=== PATIENT | female | born 1950 | race Caucasian/White ===

== ENCOUNTER → 2017-04-01 | Outpatient (CLI) | payer MEDICARE, BC ==
--- NOTE | 2017-04-02 10:27 | WWHP ---
DATE OF SERVICE: 04/01/2017 CHIEF COMPLAINT: The patient is here for her routine gynecologic exam and mammogram. HPI: This is a 66-year-old G7, P5-0-2-5 with an LMP of 2000. The patient is without gynecologic complaints. PAST MEDICAL HISTORY: Rheumatoid arthritis, osteoporosis, fibromyalgia, degenerative disc disease in the neck and lower back, herniated discs between L4 and L5, diverticulosis, irritable bowel syndrome, carpal tunnel syndrome, vertigo, dry eye syndrome, hypoglycemia, hiatal hernia and tachycardia. MEDICATIONS: 1. Humira 40 mg 1 injection every 2 weeks. 2. Arava 20 mg 1 daily. 3. Omeprazole 40 mg 1 daily. 4. Valacyclovir 500 mg 1 daily. 5. Restasis drops 2 times daily. 6. Metoprolol 25 mg 1 daily. 7. Myrbetriq 25 mg daily. 8. Prolia 1 injection every 6 months. 9. Multivitamin 2 daily. 10. Calcium supplement with vitamin D 600 mg daily. 11. Vitamin B complex and vitamin C daily. 12. Vitamin E 400 mg daily. 13. Geritol 1 tablespoon daily. 14. Fish oil supplement daily. 15. Probiotic daily. ALLERGIES: codeine. PAST SURGICAL HISTORY: Foot surgery, left knee replacement surgery, right shoulder surgery, tubal ligation, deviated nasal septum surgery, ganglion cyst removed in the past, right knee replacement in 03/07 and colonoscopy in 2010. 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 She has been on suppressive therapy for a number of years. SOCIAL HISTORY: She quit smoking in 2010 and denies alcohol and drug use. She is a and is not sexually active. She is retired. She recently moved to [place]. Family history is unchanged from the 2016 H&P. REVIEW OF SYSTEMS: She has lost 5 pounds over the last year. She denies respiratory, cardiac or GI problems. She denies maltreatment. She denies falling. : She has been having problems with urinary urgency and is seeing a urologist at [facility] for this. PHYSICAL EXAM: Blood pressure is 135/84. Height 5 feet 0 inches. Weight 122 pounds. Temperature 97.8. Pulse is 64. This is a well-developed, well-nourished white female who is alert and oriented x3 in no acute distress. HEENT is within normal limits. NECK: Supple without mass or thyromegaly. CHEST AND LUNGS: Clear to auscultation. HEART: Regular rate and rhythm. Breasts are without mass or discharge. There is mild left breast tenderness, which she has had for many years. Axillary exam is negative for adenopathy. BACK: Negative for CVA tenderness. ABDOMEN: Soft, nontender without palpable masses. PELVIC EXAM: External genitalia reveals mild to moderate atrophy without lesions. Cervix and vagina reveals mild to moderate atrophy without lesions. There is no evidence of prolapse at rest. The uterus is mid position, nongravid size and nontender. There are no palpable adnexal masses or tenderness. Rectovaginal exam is negative for mass or tenderness and is negative for occult blood. EXTREMITIES: Nontender. IMPRESSION: 1. A 66-year-old menopausal female with normal gynecologic exam. 2. Problems with urinary urgency and she is seeing a urologist for this. 3. Multiple medical problems. PLAN: 1. Pap smear was deferred since she had a normal one last year. 2. Self-breast examination was discussed. 3. Mammogram will be done today. 4. Osteoporosis management was discussed. She will follow up with doctor Abdul for management of the osteoporosis as she has done in the past. 5. She believes she is due for a colonoscopy and will be following up with Dr. Goodman for this. 6. She will follow up with Dr. Woods for blood pressure checks and her ongoing medical problems. She will also check her blood pressure at home. 7. She does get flu shots in the fall. 8. She will return in one year. RADHA
--- NOTE | 2017-04-02 13:21 | MM ---
Reason for exam: screening (asymptomatic). Last mammogram was performed 1 year ago. History: Patient is postmenopausal. Family history of breast cancer in sister at age 50. Physical Findings: A clinical breast exam by your physician is recommended on an annual basis and results should be correlated with mammographic findings. MG 3D Screening Mammo W/Cad Bilateral CC and MLO view(s) were taken. Prior study comparison: April 04, 2016, left breast MG work up mamm w CAD LT. March 28, 2016, bilateral MG screening mammo w CAD. February 09, 2014, mammogram, performed at [facility]. The breast tissue is heterogeneously dense. This may lower the sensitivity of mammography. No significant changes when compared with prior studies. ASSESSMENT: Negative, BI-RAD 1 RECOMMENDATION: Routine screening mammogram of both breasts in 1 year.
== END | disposition home or self-care (01) ==
LOC: WWCWWP 08:44
PROVIDERS: ATTEND Obstetrics & Gynecology
DX: Z12.31 Encounter for screening mammogram for malignant neoplasm of breast (principal)
CPT/HCPCS: 77063; G0202

== ENCOUNTER → 2017-04-18 | Outpatient (CLI) | payer MEDICARE, BC | END | disposition home or self-care (01) | LOC: LABWHC1 09:15 | PROVIDERS: ATTEND Internal Medicine Gastroenterology | DX: R19.7 Diarrhea, unspecified (principal) | CPT/HCPCS: 87045; 87046; 87328; 87329; 89055 ==

== ENCOUNTER 2018-03-13 13:37 | Emergency (ER) | payer MEDICARE, BC ==
[2018-03-13 13:57] VITALS: RESP 18
[2018-03-13] MEDS ORDERED: SODIUM CHLORIDE 0.9% 1,000 ML IV STA ×2 (14:45)
[2018-03-13] MEDS ORDERED: KETOROLAC 30 MG/ML 1 ML VIAL IVP STA (14:46)
[2018-03-13] MEDS ORDERED: ORPHENADRINE 30 MG/ML 2 ML VIAL IVP STA (14:46)
[2018-03-13] MEDS ORDERED: cloNIDine HCL 0.2 MG TAB PO STA (15:04)
[2018-03-13 15:09] VITALS: BP 161/84
[2018-03-13 15:13] LABS: Basophils % (A) 0 %; Eosinophils # (A) 0.1 k/uL (0-0.7); Eosinophils % (A) 1 %; HCT 37.2 % (34.0-46.0); HGB 12.4 gm/dL (11.4-16.0); Lymphocytes # (A) 1.5 k/uL (1.0-4.8); Lymphocytes % (A) 17 %; MCH 29.4 pg (25.0-35.0); MCHC 33.4 g/dL (31.0-37.0); MCV 88.1 fL (80.0-100.0); Mean Platelet Volume 7.1; Monocytes # (A) 0.5 k/uL (0-1.0); Monocytes % (A) 5 %; Neutrophils # (A) 6.4 k/uL (1.3-7.7); Neutrophils % (A) 75 %; Platelet Count 266 k/uL (150-450); RBC 4.22 m/uL (3.80-5.40); WBC 8.5 k/uL (3.8-10.6)
[2018-03-13 15:17] VITALS: PULSE 74
[2018-03-13 15:22] LABS: Partial Thromboplastin Time 22.3 sec (22.0-30.0); Prothrombin Time 9.5 sec (9.0-12.0)
[2018-03-13 15:23] LABS: ALT 40 U/L (9-52); AST 23 U/L (14-36); Albumin 4.1 g/dL (3.5-5.0); Alkaline Phosphatase 56 U/L (38-126); Anion Gap 12 mmol/L; Blood Urea Nitrogen 15 mg/dL (7-17); Calcium 9.3 mg/dL (8.4-10.2); Carbon Dioxide 20 mmol/L (22-30); Chloride 105 mmol/L (98-107); Glucose 156 mg/dL (74-99); Magnesium 1.9 mg/dL (1.6-2.3); Potassium 3.8 mmol/L (3.5-5.1); Sodium 137 mmol/L (137-145); Total Bilirubin 0.9 mg/dL (0.2-1.3); Total Protein 6.6 g/dL (6.3-8.2)
[2018-03-13 15:35] LABS: Creatine Kinase 54 U/L (30-135)
[2018-03-13 15:47] LABS: Creatine Kinase MB 1.4 ng/mL (0.0-2.4); Troponin I <0.012 ng/mL (0.000-0.034)
--- NOTE | 2018-03-13 15:49 | ED ---
Recheck HPI - General Chief Complaint: Recheck/Abnormal Lab/Rx Stated Complaint: High blood pressure Time Seen by Provider: 03/13/18 14:26 Source: patient, RN notes reviewed, old records reviewed Mode of arrival: ambulatory Limitations: no limitations - History of Present Illness Initial Comments: 67-year-old female presents that she might of high blood pressure. She's been dealing with right-sided back pain and sciatica. Her back specialist will not give any pain medication. She thinks that her blood pressure is elevated because she is having worsening pain. She reports that she's had occasional chest pains for the past 3 months. Denies any fever or chills, nausea, vomiting. - Related Data Home Medications Medication Instructions Recorded Confirmed Calcium Carbonate/Vitamin D3 1 tab PO DAILY 03/13/18 03/13/18 [Calcium 600-Vit D3 400 Tablet] EPINEPHrine (Auto Inject) [Epipen] 0.3 mg IM ONCE PRN 03/13/18 03/13/18 Gabapentin [Neurontin] 600 mg PO TID 03/13/18 03/13/18 Ibuprofen [Motrin] 600 mg PO Q8HR PRN 03/13/18 03/13/18 Leflunomide [Arava] 20 mg PO DAILY 03/13/18 03/13/18 Metoprolol Tartrate [Lopressor] 25 mg PO BID 03/13/18 03/13/18 [place]-3 Fatty Acids/Fish Oil [Fish 1 cap PO DAILY 03/13/18 03/13/18 Oil 1,000 mg Softgel] Omeprazole 40 mg PO DAILY 03/13/18 03/13/18 Prevident 5000 Paste 1 applic PO DAILY 03/13/18 03/13/18 Red Yeast Rice 600 mg PO DAILY 03/13/18 03/13/18 Simponi Aria 12.5mg/Ml 1 dose IV Q30D 03/13/18 03/13/18 Vitamin B Complex/Folic Acid 0.4 mg PO DAILY 03/13/18 03/13/18 [B-Complex Tablet] Vitamin E 1,000 unit PO DAILY 03/13/18 03/13/18 cycloSPORINE 0.05% OPHTH SOLN 1 applicator BOTH EYES DAILY 03/13/18 03/13/18 [Restasis] methylPREDNISolone Dose Pack See Taper PO DAILY 03/13/18 03/13/18 [Medrol Dose Pack] Previous Rx's Medication Instructions Recorded Cyclobenzaprine [Flexeril] 10 mg PO TID #15 tab 03/13/18 HYDROcodone/APAP 5-325MG [[place] 1 tab PO Q6HR PRN 3 Days #12 tab 03/13/18 5-325] Lisinopril [Prinivil] 5 mg PO DAILY #5 tablet 03/13/18 Allergies Allergy/AdvReac Type Severity Reaction Status Date / Time codeine Allergy Nausea & Verified 03/13/18 14:36 Vomiting Review of Systems ROS Statement: Those systems with pertinent positive or pertinent negative responses have been documented in the HPI. ROS Other: All systems not noted in ROS Statement are negative. Past Medical History Past Medical History: Chest Pain / Angina Additional Past Medical History / Comment(s): hypoglycemic , arthritis, chronic back pain, sciatica History of Any Multi-Drug Resistant Organisms: None Reported Past Surgical History: Joint Replacement, Tubal Ligation Additional Past Surgical History / Comment(s): foot surgery, nose surgery Past Psychological History: No Psychological Hx Reported Smoking Status: Never smoker Past Alcohol Use History: None Reported Past Drug Use History: None Reported General Exam - General Exam Comments Initial Comments: 67-year-old female. Alert and oriented. No significant distress. Limitations: no limitations Eye exam: Present: normal appearance, PERRL, EOMI. Absent: scleral icterus, conjunctival injection, periorbital swelling ENT exam: Present: normal exam, mucous membranes moist Neck exam: Present: normal inspection Respiratory exam: Present: normal lung sounds bilaterally. Absent: respiratory distress, wheezes, rales, rhonchi, stridor Cardiovascular Exam: Present: regular rate, normal rhythm, normal heart sounds. Absent: systolic murmur, diastolic murmur, rubs, gallop, clicks GI/Abdominal exam: Present: soft, normal bowel sounds. Absent: distended, tenderness, guarding, rebound, rigid Extremities exam: Present: normal inspection, full ROM, normal capillary refill. Absent: tenderness, pedal edema, joint swelling, calf tenderness Back exam: Present: normal inspection, paraspinal tenderness, vertebral tenderness (Lumbar and right-sided sciatic costovertebral tenderness.) Neurological exam: Present: alert, oriented X3, CN II-XII intact Psychiatric exam: Present: normal affect, normal mood Course Vital Signs 0603/13/18 03/13/18 13:55 15:07 16:30 Temperature 97.8 F 97 F L Pulse Rate 75 74 74 Respiratory 18 18 18 Rate Blood Pressure 174/93 161/84 161/84 O2 Sat by Pulse 98 98 98 Oximetry Medical Decision Making - Medical Decision Making 67-year-old female presents wrist from of right sciatic pain. Concern for high blood pressure. - Lab Data Result diagrams: 03/13/18 15:05 03/13/18 15:05 Lab Results 03/13/18 03/13/18 03/13/18 Range/Units 15:05 15:05 15:05 WBC 8.5 (3.8-10.6) k/uL RBC 4.22 (3.80-5.40) m/uL Hgb 12.4 (11.4-16.0) gm/dL Hct 37.2 (34.0-46.0) % MCV 88.1 (80.0-100.0) fL MCH 29.4 (25.0-35.0) pg MCHC 33.4 (31.0-37.0) g/dL RDW 15.0 (11.5-15.5) % Plt Count 266 (150-450) k/uL Neutrophils % 75 % Lymphocytes % 17 % Monocytes % 5 % Eosinophils % 1 % Basophils % 0 % Neutrophils # 6.4 (1.3-7.7) k/uL Lymphocytes # 1.5 (1.0-4.8) k/uL Monocytes # 0.5 (0-1.0) k/uL Eosinophils # 0.1 (0-0.7) k/uL Basophils # 0.0 (0-0.2) k/uL PT (9.0-12.0) sec INR (<1.2) APTT (22.0-30.0) sec Sodium 137 (137-145) mmol/L Potassium 3.8 (3.5-5.1) mmol/L Chloride 105 (98-107) mmol/L Carbon Dioxide 20 L (22-30) mmol/L Anion Gap 12 mmol/L BUN 15 (7-17) mg/dL Creatinine 0.67 (0.52-1.04) mg/dL Est GFR (CKD-EPI)AfAm >90 (>60 ml/min/1.73 sqM) Est GFR (CKD-EPI)NonAf >90 (>60 ml/min/1.73 sqM) Glucose 156 H (74-99) mg/dL Calcium 9.3 (8.4-10.2) mg/dL Magnesium 1.9 (1.6-2.3) mg/dL Total Bilirubin 0.9 (0.2-1.3) mg/dL AST 23 (14-36) U/L ALT 40 (9-52) U/L Alkaline Phosphatase 56 (38-126) U/L Total Creatine Kinase 54 (30-135) U/L CK-MB (CK-2) 1.4 (0.0-2.4) ng/mL CK-MB (CK-2) Rel Index 2.6 Troponin I <0.012 (0.000-0.034) ng/mL NT-Pro-B Natriuret Pep pg/mL Total Protein 6.6 (6.3-8.2) g/dL Albumin 4.1 (3.5-5.0) g/dL Urine Color Urine Appearance (Clear) Urine pH (5.0-8.0) Ur Specific [place] (1.001-1.035) Urine Protein (Negative) Urine Glucose (UA) (Negative) Urine Ketones (Negative) Urine Blood (Negative) Urine Nitrite (Negative) Urine Bilirubin (Negative) Urine Urobilinogen (<2.0) mg/dL Ur Leukocyte Esterase (Negative) 03/13/18 03/13/18 03/13/18 Range/Units 15:05 15:05 16:15 WBC (3.8-10.6) k/uL RBC (3.80-5.40) m/uL Hgb (11.4-16.0) gm/dL Hct (34.0-46.0) % MCV (80.0-100.0) fL MCH (25.0-35.0) pg MCHC (31.0-37.0) g/dL RDW (11.5-15.5) % Plt Count (150-450) k/uL Neutrophils % % Lymphocytes % % Monocytes % % Eosinophils % % Basophils % % Neutrophils # (1.3-7.7) k/uL Lymphocytes # (1.0-4.8) k/uL Monocytes # (0-1.0) k/uL Eosinophils # (0-0.7) k/uL Basophils # (0-0.2) k/uL PT 9.5 (9.0-12.0) sec INR 1.0 (<1.2) APTT 22.3 (22.0-30.0) sec Sodium (137-145) mmol/L Potassium (3.5-5.1) mmol/L Chloride (98-107) mmol/L Carbon Dioxide (22-30) mmol/L Anion Gap mmol/L BUN (7-17) mg/dL Creatinine (0.52-1.04) mg/dL Est GFR (CKD-EPI)AfAm (>60 ml/min/1.73 sqM) Est GFR (CKD-EPI)NonAf (>60 ml/min/1.73 sqM) Glucose (74-99) mg/dL Calcium (8.4-10.2) mg/dL Magnesium (1.6-2.3) mg/dL Total Bilirubin (0.2-1.3) mg/dL AST (14-36) U/L ALT (9-52) U/L Alkaline Phosphatase (38-126) U/L Total Creatine Kinase (30-135) U/L CK-MB (CK-2) (0.0-2.4) ng/mL CK-MB (CK-2) Rel Index Troponin I (0.000-0.034) ng/mL NT-Pro-B Natriuret Pep 76 pg/mL Total Protein (6.3-8.2) g/dL Albumin (3.5-5.0) g/dL Urine Color Yellow Urine Appearance Clear (Clear) Urine pH 5.0 (5.0-8.0) Ur Specific Gilbert 1.010 (1.001-1.035) Urine Protein Negative (Negative) Urine Glucose (UA) Negative (Negative) Urine Ketones Negative (Negative) Urine Blood Negative (Negative) Urine Nitrite Negative (Negative) Urine Bilirubin Negative (Negative) Urine Urobilinogen <2.0 (<2.0) mg/dL Ur Leukocyte Esterase Negative (Negative) - Radiology Data Radiology results: report reviewed Multilevel degenerative disease and facet arthropathy greatly and listhesis L5- S1. No acute cardiopulmonary processsignificant change from prior. Disposition Clinical Impression: Hypertension, Right sided sciatica Disposition: HOME SELF-CARE Condition: Stable Instructions: Sciatica (ED) Additional Instructions: Patient advised follow-up with primary care provider. It make sure take the medication as prescribed. Return to the emergency department if any alarming signs or symptoms occur. Prescriptions: Cyclobenzaprine [Flexeril] 10 mg PO TID #15 tab HYDROcodone/APAP 5-325MG [[place] 5-325] 1 tab PO Q6HR PRN 3 Days #12 tab PRN Reason: Pain Lisinopril [Prinivil] 5 mg PO DAILY #5 tablet Is patient prescribed a controlled substance at d/c from ED?: No When asked, does pt state using other controlled substances?: No If prescribed controlled substance>3 days was MAPS reviewed?: No If opioid is for acute pain is fill amount 7 days or less?: No If Rx opioid, was Start Talking consent form obtained?: No Referrals: Chapito Martin MD [Primary Care Provider] - 1-2 days Time of Disposition: 17:11
--- NOTE | 2018-03-13 15:50 | XR ---
EXAMINATION TYPE: XR chest 2V DATE OF EXAM: 03/13/2018 COMPARISON: Chest x-ray February 27, 2016. HISTORY: History of hypertension presents with chest pain. TECHNIQUE: Frontal and lateral views of the chest are obtained. FINDINGS: There is no focal air space opacity, pleural effusion, or pneumothorax seen. The cardiac silhouette size is within normal limits. Prominent right pericardial fat pad is stable from prior. T he osseous structures are intact. IMPRESSION: No acute cardiopulmonary process. No significant change from prior.
--- NOTE | 2018-03-13 15:52 | XR ---
EXAM TYPE: LUMBAR SPINE X RAY SERIES COMPARISON: NONE HISTORY: Chronic low back pain TECHNIQUE: 4 views are submitted. FINDINGS: Alignment is anatomic. The pedicles are intact. The transverse processes are intact. Hypertrophic and degenerative change of the spine noted with a grade 1 anterolisthesis L5 on S1 and severe facet arthropathy. Mild to moderate degenerative disc disease and hypertrophic spur formation at the remain ing levels. Atherosclerotic change of the vasculature noted. IMPRESSION: 1. Multilevel degenerative disc disease and facet arthropathy with grade 1 anterolisthesis L5 on S1.
[2018-03-13 16:29] LABS: Appearance,Urine Clear (Clear); Bilirubin,Urine Negative (Negative); Blood,Urine Negative (Negative); Color,Urine Yellow; Glucose,Urine (UA) Negative (Negative); Ketones,Urine Negative (Negative); Leukocyte Esterase,Urine Negative (Negative); Nitrite,Urine Negative (Negative); Protein,Urine Negative (Negative); Urobilinogen,Urine <2.0 mg/dL (<2.0)
[2018-03-13 16:31] VITALS: TEMP 97
== END 2018-03-13 17:20 | disposition home or self-care (01) ==
LOC: EC 13:37
DX: I10 Essential (primary) hypertension (principal); M54.31 Sciatica, right side; M46.97 Unspecified inflammatory spondylopathy, lumbosacral region; M47.817 Spondylosis without myelopathy or radiculopathy, lumbosacral region; M43.17 Spondylolisthesis, lumbosacral region; R07.9 Chest pain, unspecified; M19.90 Unspecified osteoarthritis, unspecified site; Z79.52 Long term (current) use of systemic steroids; Z79.899 Other long term (current) drug therapy; Z88.5 Allergy status to narcotic agent; Z86.79 Personal history of other diseases of the circulatory system
CPT/HCPCS: 36415; 93005; 83880; 80053; 82550; 82553; 83735; 84484; 85025; 85610; 85730; 81003; 72100; 71046; 99284; 96374; 96375; 96361 ×2; J2360; J1885

== ENCOUNTER → 2018-04-21 | Outpatient (CLI) | payer MEDICARE, BC ==
[2018-04-21 10:11] VITALS: BP 142/91; PULSE 90; TEMP 97.6
--- NOTE | 2018-04-21 11:15 | P.HPOB ---
History of Present Illness H&P Date: 04/21/18 Chief Complaint: The patient is here for her routine gynecologic exam and mammogram. This is a 67-year-old with an LMP of 2000. The patient is without gynecologic complaints and denies any postmenopausal bleeding. Review of Systems Weight has been stable. She denies respiratory or cardiac problems. G.I.: occasional IBS symptoms. She denies maltreatment or falling. : she does get up 2 to 3 times per night to urinate. She does take medication for an overactive bladder and sees a urologist for this. Past Medical History Past Medical History: Chest Pain / Angina, Fibromyalgia, Rheumatoid Arthritis ( RA) Additional Past Medical History / Comment(s): hypoglycemic , arthritis, chronic back pain, sciatica, osteopenia, diverticulosis, IBS, carpal tunnel syndrome, hiatal hernia. 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 History of Any Multi-Drug Resistant Organisms: None Reported Past Surgical History: Joint Replacement (Left knee replacement and later right knee replacement), Tubal Ligation Additional Past Surgical History / Comment(s): foot surgery, nose surgery. Colonoscopy 2010 and 2016. Past Psychological History: No Psychological Hx Reported Smoking Status: Former smoker (Quit 2010) Past Alcohol Use History: None Reported Past Drug Use History: None Reported Additional History: She is a and is not sexually active. She is retired. - Past Family History Mother Family Medical History: Congestive Heart Failure (CHF), Dementia Father Additional Family Medical History / Comment(s): Heart valve problems. Sister(s) Family Medical History: Cancer (Breast) Medications and Allergies Home Medications Medication Instructions Recorded Confirmed Type Calcium Carbonate/Vitamin D3 1 tab PO DAILY 03/13/18 03/13/18 History [Calcium 600-Vit D3 400 Tablet] Cyclobenzaprine [Flexeril] 10 mg PO TID #15 tab 03/13/18 Rx EPINEPHrine (Auto Inject) [Epipen] 0.3 mg IM ONCE PRN 03/13/18 03/13/18 History Gabapentin [Neurontin] 600 mg PO TID 03/13/18 03/13/18 History HYDROcodone/APAP 5-325MG [[place] 1 tab PO Q6HR PRN 3 Days #12 tab 03/13/18 Rx 5-325] Ibuprofen [Motrin] 600 mg PO Q8HR PRN 03/13/18 03/13/18 History Leflunomide [Arava] 20 mg PO DAILY 03/13/18 03/13/18 History Lisinopril [Prinivil] 5 mg PO DAILY #5 tablet 03/13/18 Rx Metoprolol Tartrate [Lopressor] 25 mg PO BID 03/13/18 03/13/18 History [place]-3 Fatty Acids/Fish Oil [Fish 1 cap PO DAILY 03/13/18 03/13/18 History Oil 1,000 mg Softgel] Omeprazole 40 mg PO DAILY 03/13/18 03/13/18 History Prevident 5000 Paste 1 applic PO DAILY 03/13/18 03/13/18 History Red Yeast Rice 600 mg PO DAILY 03/13/18 03/13/18 History Simponi Aria 12.5mg/Ml 1 dose IV Q30D 03/13/18 03/13/18 History Vitamin B Complex/Folic Acid 0.4 mg PO DAILY 03/13/18 03/13/18 History [B-Complex Tablet] Vitamin E 1,000 unit PO DAILY 03/13/18 03/13/18 History cycloSPORINE 0.05% OPHTH SOLN 1 applicator BOTH EYES DAILY 03/13/18 03/13/18 History [Restasis] methylPREDNISolone Dose Pack See Taper PO DAILY 03/13/18 03/13/18 History [Medrol Dose Pack] Allergies Allergy/AdvReac Type Severity Reaction Status Date / Time codeine Allergy Nausea & Verified 03/13/18 14:36 Vomiting Exam Vital Signs Temp Pulse BP 04/21/18 10:06 97.6 F 90 142/91 Intake and Output 04/20/18 04/21/18 04/21/18 22:59 06:59 14:59 Other: Weight 57.606 kg Height 5'0", weight 124 pounds, BMI 24. This is a well-developed well-nourished white female who is alert and oriented times 3 in no acute distress. HEENT: Within normal limits. NECK: Supple without mass or thyromegaly. CHEST AND LUNGS: Clear to auscultation. HEART: Regular rate and rhythm. BREASTS: Are without mass or discharge. AXILLARY EXAM: Negative for adenopathy. BACK: Negative for CVA tenderness. ABDOMEN: Soft, nontender, without palpable masses. PELVIC EXAM: Normal external genitalia with mild to moderate atrophy. Cervix and vagina appear normal with mild to moderate atrophy. There is no unusual discharge. There is no evidence of prolapse. The uterus is midposition, nongravid size and nontender. There are no palpable adnexal masses or tenderness. RECTAL EXAM: recto vaginal exam is negative for mass or tenderness and is negative for occult blood. EXTREMITIES: Nontender. IMPRESSION: 1. 67-year-old menopausal female with normal gynecologic exam. 2. History of osteopenia using Prolia as prescribed by Dr. Abdul. PLAN: 1. Pap smear was performed. 2. Self breast awareness was discussed. 3. Screening mammogram will be done today. 4. Osteoporosis prevention was discussed. She will follow-up with Dr. Abdul for her medication and bone density testing. 5. She has not been getting flu shots in the fall. I have asked her to reconsider this. 6. She will return one year.
--- NOTE | 2018-04-23 12:35 | MM ---
Reason for exam: screening (asymptomatic). Last mammogram was performed 1 year and 1 month ago. History: Patient is postmenopausal. Family history of breast cancer in sister at age 50. Physical Findings: A clinical breast exam by your physician is recommended on an annual basis and results should be correlated with mammographic findings. MG 3D Screening Mammo W/Cad Bilateral CC and MLO view(s) were taken. Prior study comparison: April 01, 2017, bilateral MG 3d screening mammo w/cad. April 04, 2016, left breast MG work up mamm w CAD LT. The breast tissue is heterogeneously dense. This may lower the sensitivity of mammography. There is no discrete abnormality. ASSESSMENT: Negative, BI-RAD 1 RECOMMENDATION: Routine screening mammogram of both breasts in 1 year.
== END | disposition home or self-care (01) ==
LOC: WWCWWP 09:49
PROVIDERS: ATTEND Obstetrics & Gynecology
DX: Z12.31 Encounter for screening mammogram for malignant neoplasm of breast (principal)
CPT/HCPCS: 77063; 77067

== ENCOUNTER → 2018-04-29 | Outpatient (CLI) | payer MEDICARE, BC ==
[2018-04-29 08:45] LABS: Basophils # (A) 0.1 k/uL (0-0.2); Basophils % (A) 1 %; Eosinophils # (A) 0.3 k/uL (0-0.7); Eosinophils % (A) 4 %; HCT 36.3 % (34.0-46.0); HGB 11.7 gm/dL (11.4-16.0); Lymphocytes # (A) 2.5 k/uL (1.0-4.8); Lymphocytes % (A) 37 %; MCH 29.8 pg (25.0-35.0); MCHC 32.2 g/dL (31.0-37.0); MCV 92.6 fL (80.0-100.0); Mean Platelet Volume 7.3; Monocytes # (A) 0.6 k/uL (0-1.0); Monocytes % (A) 9 %; Neutrophils # (A) 3.2 k/uL (1.3-7.7); Neutrophils % (A) 48 %; Platelet Count 276 k/uL (150-450); RBC 3.93 m/uL (3.80-5.40); RDW 15.6 % (11.5-15.5); WBC 6.7 k/uL (3.8-10.6)
[2018-04-29 10:59] LABS: Erythrocyte Sedimentation Rate 13 mm/hr (0-20)
--- NOTE | 2018-04-29 15:31 | NM ---
EXAMINATION TYPE: NM bone 3 phase DATE OF EXAM: 04/29/2018 COMPARISON: NONE HISTORY: Swelling, mass, and lump left knee per order. All the time left knee pain for 6 months with history of replacement 5 years ago. History of right knee replacement 2 years ago. Triple phase bone scintigraphy was performed following the injection of 23.8 mCi Tc 99m MDP. Immedia te images and 5 hours post injection images acquired. FINDINGS: Arterial and soft tissue phase images show asymmetric increased radiotracer uptake surrounding lucent areas or prosthesis in either knee. Delayed phased images show mild asymmetric increased radiotracer uptake surrounding prosthesis of right knee versus left knee more prominent in the tibial component. This is nonspecific. IMPRESSION: No scintigraphic evidence of abnormal 3 phase radiotracer uptake surrounding left knee prosthesis to suggest infection.
== END | disposition home or self-care (01) ==
LOC: RADNMMAIN 07:20
PROVIDERS: ATTEND Orthopaedic Surgery
DX: R22.42 Localized swelling, mass and lump, left lower limb (principal); T84.84XD Pain due to internal orthopedic prosthetic devices, implants and grafts, subsequent encounter; Z88.5 Allergy status to narcotic agent
CPT/HCPCS: 85652; 85025; 86140; 78315; 36415; A9503

== ENCOUNTER 2018-07-07 12:22 | Emergency (ER) | payer MEDICARE, BC ==
[2018-07-07 12:42] VITALS: BP 126/82; PULSE 78; RESP 20; TEMP 98.4
[2018-07-07] MEDS ORDERED: IBUPROFEN 600 MG TAB PO STA (13:54)
--- NOTE | 2018-07-07 14:22 | ED ---
Upper Extremity HPI - General Chief Complaint: Extremity Injury, Upper Stated Complaint: shoulder pain Time Seen by Provider: 07/07/18 13:43 Source: patient Mode of arrival: ambulatory Limitations: no limitations - History of Present Illness Initial Comments: 67-year-old female past medical history of rheumatoid arthritis, osteoporosis, hypertension who presents today for chief complaint of left shoulder pain. Patient states that she was diagnosed with a rotator cuff tear earlier this year in December where she was prescribed by her primary care provider physical therapy. She states that this helped alleviate symptoms. Patient has been taking a swimming class for the past 3 weeks which has been aggravating left shoulder pain. Patient states that today she went to flush the toilet when she felt a sharp burning pain in her left shoulder she presented primary care physician for evaluation, states she probably has a rotator cuff tear again and to go to the emergency department for evaluation. Patient denies any numbness, tingling, loss sensation, muscle weakness, rashes, fever, chills, redness of the left shoulder, chest pain, shortness of breath, dyspnea on exertion. Patient denies any recent falls within the last year or trauma to the left shoulder. Patient does admit to limited rotation of the left shoulder secondary to pain as well as point localization of pain with reproducibility to palpation over the left AC joint, however denies inability to range at the left shoulder. Remainder of ROS (-) patient denies any recent back pain, abdominal pain, nausea or vomiting, numbness or tingling, dysuria or hematuria, constipation or diarrhea, headaches or visual changes, or any other complaints. - Related Data Home Medications Medication Instructions Recorded Confirmed Calcium Carbonate/Vitamin D3 1 tab PO DAILY 03/13/18 04/21/18 [Calcium 600-Vit D3 400 Tablet] EPINEPHrine (Auto Inject) [Epipen] 0.3 mg IM ONCE PRN 03/13/18 04/21/18 Metoprolol Tartrate [Lopressor] 25 mg PO BID 03/13/18 04/21/18 Goessel-3 Fatty Acids/Fish Oil [Fish 1 cap PO DAILY 03/13/18 03/13/18 Oil 1,000 mg Softgel] Omeprazole 40 mg PO DAILY 03/13/18 04/21/18 Red Yeast Rice 600 mg PO DAILY 03/13/18 04/21/18 Simponi Aria 12.5mg/Ml 1 dose IV Q30D 03/13/18 04/21/18 Vitamin B Complex/Folic Acid 0.4 mg PO DAILY 03/13/18 04/21/18 [B-Complex Tablet] Cholecalciferol (Vitamin D3) 04/21/18 [Vitamin D3] Cholecalciferol (Vitamin D3) cap PO DAILY 04/21/18 [Vitamin D3] Mirabegron [Myrbetriq] mg PO DAILY 04/21/18 cycloSPORINE [Restasis] mg PO BID 04/21/18 valACYclovir [Valtrex] mg PO DAILY 04/21/18 Previous Rx's Medication Instructions Recorded Lisinopril [Prinivil] 5 mg PO DAILY #5 tablet 03/13/18 Acetaminophen Tab [Tylenol Tab] 500 mg PO Q6H PRN 7 Days #28 tablet 07/07/18 Ibuprofen 600 mg PO Q8H PRN 7 Days #21 tablet 07/07/18 Allergies Allergy/AdvReac Type Severity Reaction Status Date / Time codeine Allergy Nausea & Verified 07/07/18 12:42 Vomiting Review of Systems ROS Statement: Those systems with pertinent positive or pertinent negative responses have been documented in the HPI. ROS Other: All systems not noted in ROS Statement are negative. Constitutional: Denies: fever, chills Respiratory: Denies: cough, dyspnea, wheezes, hemoptysis, stridor Cardiovascular: Denies: chest pain, palpitations Gastrointestinal: Denies: abdominal pain, nausea, vomiting, diarrhea, constipation Genitourinary: Denies: urgency, dysuria Musculoskeletal: Reports: arthralgia. Denies: back pain, joint swelling Skin: Denies: rash Neurological: Denies: headache, weakness, numbness, paresthesias, confusion, abnormal gait Past Medical History Past Medical History: Chest Pain / Angina, Fibromyalgia, Rheumatoid Arthritis ( RA) Additional Past Medical History / Comment(s): hypoglycemic , arthritis, chronic back pain, sciatica, osteopenia, diverticulosis, IBS, carpal tunnel syndrome, hiatal hernia. 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 History of Any Multi-Drug Resistant Organisms: None Reported Past Surgical History: Joint Replacement, Tubal Ligation Additional Past Surgical History / Comment(s): foot surgery, nose surgery. Colonoscopy 2010 and 2016. Past Psychological History: No Psychological Hx Reported Smoking Status: Former smoker Past Alcohol Use History: None Reported Past Drug Use History: None Reported - Past Family History Mother Family Medical History: Congestive Heart Failure (CHF), Dementia Father Additional Family Medical History / Comment(s): Heart valve problems. Sister(s) Family Medical History: Cancer (Breast) General Exam - General Exam Comments Initial Comments: General: The patient is awake and alert, in no distress, and does not appear acutely ill. Eye: +3 mm pupils are equal, round, extra-ocular movements are intact. No nystagmus. There is normal conjunctiva bilaterally. No signs of icterus. Cardiovascular: There is a regular rate and rhythm. No murmur, rub or gallop is appreciated. Respiratory: Lungs are clear to auscultation, respirations are non-labored, breath sounds are equal. No wheezes, stridor, rales, or rhonchi. Musculoskeletal: Upon inspection of the shoulders bilaterally reveals no palpable defects or step-offs, there is no erythema, lesions or rashes of the shoulder b/l. No warmth palpation of the shoulders.Pt is able to passively and actively range at the left shoulder complaining of pain with all range of motion including forward flexion, extension, internal and external rotation. There is no tenderness to palpation of the posterior shoulder, or over the humeral head. This is tenderness to palpation over the AC joint and left mid scapula. Strength 5/5 of the UE equally b/l- no noted weakness. (-) drop arm and empty can testing. (+) AC cross testing. Sensation intact f the UE equally b /l-no patch paresthesias patient is able to make the okay, thumbs-up, fingers crossed and stop sign, there is no noted wrist drop. Ulnar, median, radial nerves intact b/l. Radial pulses equal bilaterally 2+. Compartments soft and compressible. Neurological: A&O x 3. CN II-XII intact, There are no obvious motor or sensory deficits. Coordination appears grossly intact. Speech is normal. Skin: Skin is warm and dry and no rashes or lesions are noted. Psychiatric: Cooperative, appropriate mood & affect, normal judgment. Limitations: no limitations Course Vital Signs 07/07/18 12:40 Temperature 98.4 F Pulse Rate 78 Respiratory 20 Rate Blood Pressure 126/82 O2 Sat by Pulse 96 Oximetry Medical Decision Making - Medical Decision Making Pt with hx of atraumatic shoulder pain. Pt given ibuprofen for pain mgmt. XR obtained revealing an abnormal lucency extending along the superior margin of the scapula towards the upper margin of the glenoid this is suggestive of a healing fracture due to noted sclerosis, however, no history of trauma concerning for a pathologic fracture. These findings were discussed at length with the patient, including the possibility of the fracture being pathologic including from her osteoporosis/malignant-pt verbalized understanding. PE/HX not concerning for ACS or septic joint. The pain reproducible to palpation of the AC joint and recent increase in swimming concerning for AC joint sprain in addition to the abnormal lucency. Pt neurovascularly intact. Pt placed in left arm sling. Case discussed in detail with Dr. Smith at this time I feel pt is stable for d/c with orthopedic surgery f/u as well a primary care f/u. Pt was given prescription for ibuprofen and tylenol as well as disc of radiologic imaging for orthopedic f/u. Return parameters discussed in detail patient. Patient discharged in stable condition. Disposition Clinical Impression: Pathologic fracture of left scapula, Sprain of acromioclavicular joint Disposition: HOME SELF-CARE Condition: Good Instructions: Scapular Fracture (ED), Shoulder Sprain (ED) Additional Instructions: Please use medication as discussed. Please follow-up with orthopedic surgery as discussed in the next 2-3 days. Please return to emergency room if the symptoms increase or worsen or for any other concerns. Prescriptions: Acetaminophen Tab [Tylenol Tab] 500 mg PO Q6H PRN 7 Days #28 tablet PRN Reason: Pain Ibuprofen 600 mg PO Q8H PRN 7 Days #21 tablet PRN Reason: Pain Is patient prescribed a controlled substance at d/c from ED?: No Referrals: Chapito Martin MD [Primary Care Provider] - 1-2 days Marcus Lynch DO [Doctor of Osteopathic Medicine] - 1-2 days Time of Disposition: 14:57
--- NOTE | 2018-07-07 14:29 | XR ---
EXAMINATION TYPE: XR shoulder complete LT DATE OF EXAM: 07/07/2018 COMPARISON: NONE HISTORY: Pain TECHNIQUE: Three views are submitted. FINDINGS: There is abnormal lucency extending along the superior margin of the scapula toward the upper margin of the glenoid. Findings are suggestive of a fracture. However, there appears to be sclerosis. Correl ate for recent history of trauma, otherwise, consider pathologic fracture. IMPRESSION: 1. Abnormal appearance along the upper margin of the scapula with a lucency mixed with sclerosis. A h ealing fracture is felt to be the most likely etiology. Correlate for recent history of trauma otherw ise consider pathologic fracture.
== END 2018-07-07 15:05 | disposition home or self-care (01) ==
LOC: EC 12:22
DX: M84.412A Pathological fracture, left shoulder, initial encounter for fracture (principal); S43.52XA Sprain of left acromioclavicular joint, initial encounter; I10 Essential (primary) hypertension; Z79.899 Other long term (current) drug therapy; Z88.5 Allergy status to narcotic agent; X50.9XXA Other and unspecified overexertion or strenuous movements or postures, initial encounter
CPT/HCPCS: 99283

== ENCOUNTER → 2018-08-25 | Outpatient (CLI) | payer MEDICARE, BC ==
--- NOTE | 2018-08-25 22:32 | MR ---
MR left scapula HISTORY: Abnormal plain film, pain Multiplanar multisequence imaging through the left scapula. Correlation to plain film dated 08/10/2018, 07/07/2018 Superior margin of the scapula medially shows a fracture which is displaced as noted on plain film, t here is associated intermediate signal on T1, high signal on T2-weighted sequences compatible with lo connie inflammatory change, edema. There is no evident dislocation. IMPRESSION: Displaced fracture superior margin of the scapula, CT correlation likely would be of bene fit, consider bone scan if pathologic fracture is suspected clinically
== END | disposition home or self-care (01) ==
LOC: RADMRIMAIN 20:42
PROVIDERS: ATTEND Orthopaedic Surgery
DX: S42.102A Fracture of unspecified part of scapula, left shoulder, initial encounter for closed fracture (principal)

== ENCOUNTER → 2018-08-28 | Outpatient (CLI) | payer MEDICARE, BC | END | disposition home or self-care (01) | LOC: LABPAT 11:57 | PROVIDERS: ATTEND Orthopaedic Surgery | DX: Z01.812 Encounter for preprocedural laboratory examination (principal) | CPT/HCPCS: 87070 ==

== ENCOUNTER → 2018-12-02 | Outpatient (CLI) | payer MEDICARE, BC ==
[2018-12-02 08:34] VITALS: BP 138/88; PULSE 85; RESP 16; TEMP 96.7; BMI 22.6
--- NOTE | 2018-12-02 09:36 | P.PN ---
Progress Note - Text Progress Note Date: 12/02/18 Chief Complaint: vaginal itching during the past one week HPI: This is a 68-year-old with an LMP of 2000. The patient states that she has had 3 urinary tract infections since August. She was treated at an urgent care center on 3 different occasions with different antibiotics. One of the antibiotics was Keflex. She is unsure of the other 2. Each time she was treated, the symptoms seem to improve but she did have 2 recurrences. In mid- October she developed vaginal pruritus and she used some type of anti-itch cream that she got [id number]. That seemed to burn so she did use Vaseline which seem to help somewhat. Her symptoms did improve until last week when she again developed vaginal itching inside. She also noticed a slight white discharge without odor. Today the pruritus is somewhat improved. She has not used any vaginal yeast infection creams. She is not sexually active. She does use pads for slight urinary incontinence. Two weeks ago she also noticed lower abdominal pain which happened for about 2 hours and she used a warm heating pad to be lower abdomen which seemed to help. She again noticed lower abdominal discomfort 3 days ago. She states she has not been having the abdominal and pelvic pain today. ROS: she denies fever. She denies respiratory, cardiac, or G.I. problems. : as in the HPI. She is no longer having any urinary tract infection symptoms. PE: Blood pressure: 138/88, Height: 5'0", Weight: 116 pounds, Temperature: 96.7, Pulse: 85. Pulse oximeter 96%, respiratory rate 16. This is a well developed, well nourished, white female who is alert and orientedx3, in no acute distress. Abdomen: soft with mild left lower quadrant tenderness without palpable masses. There is no significant abdominal distention. There is no rebound tenderness. Pelvic: external genitalia reveals moderate atrophy with mild generalized erythema. There is no leukoplakia. Cervix and vagina also reveal moderate atrophy without lesions. There is a small amount of thicker white creamy discharge. There is no odor. There is no cervical motion tenderness. Uterus is small, non-gravid size and nontender. There is mild left adnexal tenderness without palpable mass. There is minimal right adnexal tenderness without palpable mass. Wet gloria: Saline wet gloria are negative for trichomonas or clue cells. ANUP wet mount shows few hyphae. Impression: 1. Brianna vaginitis probably related to antibiotic use. 2. Low abdominal pain which has been intermittent with left adnexal tenderness on exam today. Differential diagnosis will include ovarian mass and possible G.I. pain. 3. Recurrent urinary tract infections. She has had 3 urinary tract infections over the past 3 months. Her significant congenital atrophy may put her at a greater risk for urinary tract infections. Plan: 1. Diflucan 150 mg PO times 1. The electronic prescription will be sent to [facility] pharmacy on . 2. Estrace vaginal cream 1 g intravaginally 2 times weekly. She will also he's a small amount of this amount on her fingers to apply near the urethral opening. She will start this after her Brianna vaginitis symptoms have resolved. 3. Pelvic ultrasound will be scheduled. The patient was given an order form for this. 4. She will return in approximately 5 months for her annual woman exam. Time spent with the patient: 30 minutes
== END ==
LOC: WWCWWP 08:11
PROVIDERS: ATTEND Obstetrics & Gynecology
DX: Z53.9 Procedure and treatment not carried out, unspecified reason (principal)

== ENCOUNTER → 2019-01-13 | Outpatient (CLI) | payer MEDICARE, BC ==
--- NOTE | 2019-01-13 14:09 | CT ---
EXAMINATION TYPE: CT shoulder LT wo con DATE OF EXAM: 01/13/2019 COMPARISON: None HISTORY: Nondisplaced fracture acromial process CT DLP: 410 mGycm Automated exposure control for dose reduction was used. TECHNIQUE: Axial images 3 mm thick sections. Reconstructed images in the coronal and sagittal planes. FINDINGS: There is a fracture of the acromion near its insertion on the scapula. There is some diastases fractu re fragment. The coracoid is intact. Scapula is otherwise intact. Acromiohumeral space is preserved. Acromial clav icular junction appears within normal limits. Humeral head articulates with the glenoid. Mild elevation of the humerus in relation to the glenoid m ay be present. IMPRESSION: ACROMIAL FRACTURE NEAR ITS INSERTION ON THE SCAPULAR SPINE. THERE IS SOME DIASTASES WITHOUT EVIDENCE OF INTERVAL HEALING.
== END | disposition home or self-care (01) ==
LOC: RADCTMAIN 11:31
PROVIDERS: ATTEND Orthopaedic Surgery
DX: S42.122A Displaced fracture of acromial process, left shoulder, initial encounter for closed fracture (principal)

== ENCOUNTER → 2019-05-10 | Outpatient (CLI) | payer MEDICARE, BC ==
--- NOTE | 2019-05-11 10:59 | MM ---
Reason for exam: screening (asymptomatic). Last mammogram was performed 1 year and 1 month ago. History: Patient is postmenopausal. Family history of breast cancer in sister at age 50. Physical Findings: A clinical breast exam by your physician is recommended on an annual basis and results should be correlated with mammographic findings. MG 3D Screening Mammo W/Cad Bilateral CC and MLO view(s) were taken. Prior study comparison: April 21, 2018, bilateral MG 3d screening mammo w/cad. April 01, 2017, bilateral MG 3d screening mammo w/cad. The breast tissue is heterogeneously dense. This may lower the sensitivity of mammography. There are benign appearing round vascular calcifications bilaterally. There is no discrete abnormality. ASSESSMENT: Benign, BI-RAD 2 RECOMMENDATION: Routine screening mammogram of both breasts in 1 year.
== END | disposition home or self-care (01) ==
LOC: RADMAMWWP 13:47
PROVIDERS: ATTEND Obstetrics & Gynecology
DX: Z12.31 Encounter for screening mammogram for malignant neoplasm of breast (principal)
CPT/HCPCS: 77063; 77067

== ENCOUNTER → 2019-05-28 | Outpatient (CLI) | payer MEDICARE, BC ==
--- NOTE | 2019-05-28 13:44 | MR ---
EXAMINATION TYPE: MR lumbar spine wo con DATE OF EXAM: 05/28/2019 COMPARISON: Lumbar x-rays dated 03/13/2018 HISTORY: Lumbago with sciatica, left side TECHNIQUE: Multiplanar, multisequence images of the lumbar spine were acquired. FINDINGS: The lumbar spine maintains normal vertebral body heights and bone marrow signal. Multilevel disc desiccation is seen. There is grade 1 degenerative listhesis of L4 on L5. Conus medullaris is u nremarkable terminating at L2. Rudimentary disc is seen at S1-S2 and S2-S3. L1-L2: Disc desiccation without focal disc herniation, spinal canal stenosis nor neural foraminal sumeet rowing. L2-L3: Small broad-based disc bulge and minimal facet arthropathy without spinal canal stenosis nor n eural foraminal narrowing. L3-L4: Right eccentric broad-based disc bulge and facet arthropathy resulting in mild left and modera te right neuroforaminal narrowing. L4-L5: Right eccentric disc bulge results in mild to moderate right and mild left neural foraminal na rrowing in combination with facet arthropathy. No focal disc herniation. L5-S1: Disc uncovering from the anterolisthesis is seen as well as a left eccentric disc bulge and le ft foraminal disc herniation creating severe left neural foraminal narrowing impinging upon the exiti ng L5 nerve root. Only mild right neural foraminal narrowing is seen. No spinal canal stenosis. Synov ial cysts are seen in the right facet joint. Facet arthropathy is seen at this level. IMPRESSION: 1. Impingement of the left L5 nerve root with severe left neural foraminal narrowing secondary to a l eft foraminal disc herniation and disc uncovering from stasis of L5 on S1 in addition to facet arthro christiano. 2. Mild multilevel degenerative disc disease of the remainder of the lumbar spine without focal disc herniation or spinal canal stenosis.
== END | disposition home or self-care (01) ==
LOC: RADMRIMAIN 11:41
PROVIDERS: ATTEND Orthopaedic Surgery
DX: M48.061 Spinal stenosis, lumbar region without neurogenic claudication (principal); M51.26 Other intervertebral disc displacement, lumbar region; M51.36 Other intervertebral disc degeneration, lumbar region; M46.96 Unspecified inflammatory spondylopathy, lumbar region; M25.80 Other specified joint disorders, unspecified joint
CPT/HCPCS: 72148

== ENCOUNTER → 2019-07-26 | Outpatient (CLI) | payer MEDICARE, BC ==
--- NOTE | 2019-07-26 11:43 | BD ---
EXAMINATION TYPE: Axial Bone Density DATE OF EXAM: 07/26/2019 COMPARISON: 07/24/2017 CLINICAL HISTORY: M 82.0 Height: 59.5 IN Weight: 119 LBS FRAX RISK QUESTIONS: History of Fracture in Adulthood: LT SHOULDER 68, RT FOOT AGE 67 Secondary Osteoporosis: Rheumatoid Arthritis: YES RISK FACTORS HISTORY OF: Family History of Osteoporosis: YES MOTHER Active: YES Diet low in dairy products/other sources of calcium: YES Postmenopausal woman: AGE 50 Lost more than 2 inches in height since high school: YES 2 /" Frequent falls: YES BALANCE ISSUES MEDICATIONS: Osteoporosis Medications: Which medication: Prolia How Lon YEARS Additional Medications: PROLIA, CALCIUM, VIT D,ENBREL, METHOTREXATE, LEUCOVORIN, OMEPRAZOLE, RESTASIS , LISINOPRIL,B12, FISH OIL, EXAM MEASUREMENTS: Bone mineral densitometry was performed using the [employer] System. Bone mineral density as measured about the Lumbar spine is: ----- L1-L4(G/cm2): 0.931 T Score Values are as follows: ----- L2: -2.5 ----- L3: -2.2 ----- L4: -1.9 ----- L1-L4: -2.1 Bone mineral density has: Decreased -1.5 Since study of (07/24/17) Bone mineral density about the R hip (g/cm2): 0.922 Bone mineral density about the L hip (g/cm2): 0.754 T Score values are as follows: -----R Neck: -0.8 -----L Neck: -2.0 -----R Total: -1.0 -----L Total: -1.6 Bone mineral density has: Decreased -0.1 Since study 07/24/17 IMPRESSION: Osteopenia (T Score between -2.5 and -1). There is slightly increased risk of fracture and the patient may be considered for treatment. Re-Screen 2-5 years. NOTE: T-SCORE=SD OF THE YOUNG ADULT MEAN.
== END | disposition home or self-care (01) ==
LOC: RADBDWWP 09:31
PROVIDERS: ATTEND Internal Medicine Rheumatology
DX: M85.88 Other specified disorders of bone density and structure, other site (principal)
CPT/HCPCS: 77080

== ENCOUNTER 2019-09-11 19:20 | Emergency (ER) | payer MEDICARE, BC ==
[2019-09-11 19:50] VITALS: TEMP 98.4
[2019-09-11] MEDS ORDERED: SODIUM CHLORIDE 0.9% 1,000 ML IV STA (20:09)
[2019-09-11] MEDS ORDERED: HYDROmorphone 1 MG/ML 1 ML SYRINGE IVP STA (20:09)
[2019-09-11] MEDS ORDERED: ONDANSETRON 4 MG/2 ML VIAL IVP STA (20:11)
[2019-09-11] MEDS ORDERED: HYDROmorphone 0.5 MG/0.5 ML SYRINGE IVP STA ×2 (20:13→22:55)
--- NOTE | 2019-09-11 20:13 | ED ---
General Adult HPI - General Chief complaint: Syncope Stated complaint: Abd pain Time Seen by Provider: 09/11/19 19:51 Source: patient Mode of arrival: ambulatory Limitations: no limitations - History of Present Illness Initial comments: Patient presents to the ED with her daughter for evaluation. Patient states that she has had constant and worsening left lower quadrant abdominal pain radiating to her right lower quadrant for the past 4 days. She states that she is concerned that her symptoms are secondary to diverticulitis, as she has had in the past. Patient also reports that she had a brief syncopal episode when her pain was severe earlier this afternoon. She states that during this episode she became warm, diaphoretic and lightheaded. She states that her son caught her when she had her syncopal episode, and she denies sustaining any trauma or injury. Patient denies fever or chills, headache, chest pain, dyspnea, palpitations, upper abdominal pain, nausea or vomiting, diarrhea or constipation, bloody or melanotic stool, dysuria/hematuria/urinary frequency/urinary symptoms, or any other symptoms or complaints. Patient states that her pain is worse with ambulation and position changes. - Related Data Home Medications Medication Instructions Recorded Confirmed Calcium Carbonate/Vitamin D3 1 tab PO DAILY 03/13/18 12/02/18 [Calcium 600-Vit D3 400 Tablet] EPINEPHrine (Auto Inject) [Epipen] 0.3 mg IM ONCE PRN 03/13/18 12/02/18 [place]-3 Fatty Acids/Fish Oil [Fish 1 cap PO DAILY 03/13/18 12/02/18 Oil 1,000 mg Softgel] Omeprazole 40 mg PO DAILY 03/13/18 12/02/18 Simponi Aria 12.5mg/Ml 1 dose IV Q30D 03/13/18 12/02/18 Vitamin B Complex/Folic Acid 0.4 mg PO DAILY 03/13/18 04/21/18 [B-Complex Tablet] Cholecalciferol (Vitamin D3) PO DAILY 04/21/18 [Vitamin D3] cycloSPORINE [Restasis] mg PO BID 04/21/18 valACYclovir [Valtrex] mg PO DAILY 04/21/18 Previous Rx's Medication Instructions Recorded Lisinopril [Prinivil] 5 mg PO DAILY #5 tablet 03/13/18 Acetaminophen Tab [Tylenol Tab] 500 mg PO Q6H PRN 7 Days #28 tablet 07/07/18 Estradiol Cream [Estrace Cream 1 gm VAGINAL DIRECTED #1 tube 12/02/18 0.01%] Fluconazole [Diflucan] 150 mg PO ONCE #1 tab 12/02/18 Allergies Allergy/AdvReac Type Severity Reaction Status Date / Time codeine Allergy Nausea & Verified 09/11/19 19:50 Vomiting Review of Systems ROS Statement: Those systems with pertinent positive or pertinent negative responses have been documented in the HPI. ROS Other: All systems not noted in ROS Statement are negative. Past Medical History Past Medical History: Chest Pain / Angina, Fibromyalgia, Rheumatoid Arthritis (RA) Additional Past Medical History / Comment(s): hypoglycemic , arthritis, chronic back pain, sciatica, osteopenia, diverticulosis, IBS, carpal tunnel syndrome, hiatal hernia. 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 History of Any Multi-Drug Resistant Organisms: None Reported Past Surgical History: Joint Replacement, Tubal Ligation Additional Past Surgical History / Comment(s): foot surgery, nose surgery. Colonoscopy 2010 and 2016. Past Psychological History: No Psychological Hx Reported Smoking Status: Former smoker Past Alcohol Use History: None Reported Past Drug Use History: None Reported - Past Family History Mother Family Medical History: Congestive Heart Failure (CHF), Dementia Father Additional Family Medical History / Comment(s): Heart valve problems. Sister(s) Family Medical History: Cancer General Exam Limitations: no limitations General appearance: alert, in no apparent distress Head exam: Present: atraumatic, normocephalic Eye exam: Present: normal appearance, PERRL, EOMI ENT exam: Present: mucous membranes moist Neck exam: Present: other (Trachea is in midline) Respiratory exam: Present: normal lung sounds bilaterally. Absent: respiratory distress, wheezes, rales, rhonchi Cardiovascular Exam: Present: regular rate, normal rhythm, normal heart sounds, other (Normal radial pulses bilaterally) GI/Abdominal exam: Present: soft, other (Moderate left lower quadrant abdominal tenderness). Absent: distended, guarding, rebound Extremities exam: Absent: tenderness, pedal edema, calf tenderness Back exam: Absent: CVA tenderness (R), CVA tenderness (L) Neurological exam: Present: alert, oriented X3. Absent: motor sensory deficit Psychiatric exam: Present: normal affect, normal mood Skin exam: Present: warm, dry, intact, normal color Course Vital Signs 09/11/19 09/11/19 19:45 22:11 Temperature 98.4 F Pulse Rate 82 74 Respiratory 18 16 Rate Blood Pressure 120/83 116/69 O2 Sat by Pulse 95 97 Oximetry - Reevaluation(s) Reevaluation #1: 09/11/19 22:36 Patient states that her pain has improved significantly with ED treatment. Patient denies development of any new symptoms while in the ED. Patient's abdomen remains soft and without any surgical signs on exam. Patient and daughter are aware of the patient's test results/CT findings, and patient feels comfortable going home with her daughter at this time. Patient now reports to me that she was started on a course of Augmentin by her PCP this morning for empiric treatment of suspected diverticulitis. Given the patient's finding of possible colitis on CT, I have recommended that she complete the course of Augmentin that she was started on this morning. Patient and daughter were counseled about abdominal pain, colitis and syncope. Patient was instructed to follow up closely with her primary care provider, and to return to the ED should she develop new or worsening pain or symptoms. Patient was clearly explained return and follow-up instructions. EKG Findings - EKG Comments: EKG Findings:: Normal sinus rhythm, ventricular rate of 73 bpm, occasional premature supraventricular complexes, normal [place] and QRS intervals, normal QT interval, normal axis, no ST or T-wave abnormality Medical Decision Making - Medical Decision Making I suspect that the patient's abdominal pain is likely secondary to colitis. I suspect that the patient's syncopal episode earlier today, which occurred while she reports that she was having severe pain, was likely vasovagal in etiology. Patient is currently on a course of Augmentin, which she was instructed to co mplete as prescribed. Patient was also instructed to follow up closely with her primary care provider, and to return to the ED should she develop new or worsening symptoms. She feels comfortable with the plan. Will discharge patient home with her daughter at this time. - Lab Data Result diagrams: 09/11/19 20:25 09/11/19 20:25 Lab Results 09/11/19 09/11/19 09/11/19 Range/Units 20:25 20:25 21:15 WBC 12.7 H (3.8-10.6) k/uL RBC 3.72 L (3.80-5.40) m/uL Hgb 11.1 L (11.4-16.0) gm/dL Hct 33.5 L (34.0-46.0) % MCV 89.9 (80.0-100.0) fL MCH 29.8 (25.0-35.0) pg MCHC 33.2 (31.0-37.0) g/dL RDW 14.0 (11.5-15.5) % Plt Count 217 (150-450) k/uL Neutrophils % 68 % Lymphocytes % 20 % Monocytes % 7 % Eosinophils % 2 % Basophils % 1 % Neutrophils # 8.6 H (1.3-7.7) k/uL Lymphocytes # 2.5 (1.0-4.8) k/uL Monocytes # 0.9 (0-1.0) k/uL Eosinophils # 0.2 (0-0.7) k/uL Basophils # 0.1 (0-0.2) k/uL Sodium 132 L (137-145) mmol/L Potassium 5.0 (3.5-5.1) mmol/L Chloride 100 (98-107) mmol/L Carbon Dioxide 21 L (22-30) mmol/L Anion Gap 11 mmol/L BUN 19 H (7-17) mg/dL Creatinine 0.82 (0.52-1.04) mg/dL Est GFR (CKD-EPI)AfAm 85 (>60 ml/min/1.73 sqM) Est GFR (CKD-EPI)NonAf 74 (>60 ml/min/1.73 sqM) Glucose 87 (74-99) mg/dL Calcium 10.0 (8.4-10.2) mg/dL Total Bilirubin 1.2 (0.2-1.3) mg/dL AST 41 H (14-36) U/L ALT 26 (4-34) U/L Alkaline Phosphatase 59 (38-126) U/L Total Protein 7.3 (6.3-8.2) g/dL Albumin 4.3 (3.5-5.0) g/dL Lipase 69 (23-300) U/L Urine Color Yellow Urine Appearance Clear (Clear) Urine pH 7.0 (5.0-8.0) Ur Specific [place] 1.007 (1.001-1.035) Urine Protein Negative (Negative) Urine Glucose (UA) Negative (Negative) Urine Ketones Trace H (Negative) Urine Blood Negative (Negative) Urine Nitrite Negative (Negative) Urine Bilirubin Negative (Negative) Urine Urobilinogen <2.0 (<2.0) mg/dL Ur Leukocyte Esterase Negative (Negative) - Radiology Data Radiology results: report reviewed (CT abdomen and pelvis with IV contrast shows "correlate for fecal stasis, possible colitis") Disposition Clinical Impression: Abdominal pain, Syncope, Colitis Disposition: HOME SELF-CARE Condition: Stable Instructions (If sedation given, give patient instructions): Syncope (ED), Abdominal Pain (ED), Colitis (ED) Additional Instructions: Return to the ER immediately should you develop new or worsening pain, a fever, shortness of breath, vomiting, feeling dizzy or faint, fainting, or new or worsening symptoms. Follow up closely with your primary care provider. Is patient prescribed a controlled substance at d/c from ED?: No Referrals: Chapito Martin MD [Primary Care Provider] - 1-2 days Time of Disposition: 22:43
[2019-09-11 20:44] LABS: Basophils # (A) 0.1 k/uL (0-0.2); Basophils % (A) 1 %; Eosinophils # (A) 0.2 k/uL (0-0.7); Eosinophils % (A) 2 %; HCT 33.5 % (34.0-46.0); HGB 11.1 gm/dL (11.4-16.0); Lymphocytes # (A) 2.5 k/uL (1.0-4.8); Lymphocytes % (A) 20 %; MCH 29.8 pg (25.0-35.0); MCHC 33.2 g/dL (31.0-37.0); MCV 89.9 fL (80.0-100.0); Mean Platelet Volume 11.1; Monocytes # (A) 0.9 k/uL (0-1.0); Monocytes % (A) 7 %; Neutrophils # (A) 8.6 k/uL (1.3-7.7); Neutrophils % (A) 68 %; Platelet Count 217 k/uL (150-450); RBC 3.72 m/uL (3.80-5.40); WBC 12.7 k/uL (3.8-10.6)
[2019-09-11 20:50] LABS: Albumin 4.3 g/dL (3.5-5.0); Total Bilirubin 1.2 mg/dL (0.2-1.3); Total Protein 7.3 g/dL (6.3-8.2)
[2019-09-11 21:26] LABS: Appearance,Urine Clear (Clear); Bilirubin,Urine Negative (Negative); Blood,Urine Negative (Negative); Color,Urine Yellow; Glucose,Urine (UA) Negative (Negative); Ketones,Urine Trace (Negative); Leukocyte Esterase,Urine Negative (Negative); Nitrite,Urine Negative (Negative); Protein,Urine Negative (Negative); Specific Gravity,Urine 1.007 (1.001-1.035); Urobilinogen,Urine <2.0 mg/dL (<2.0)
--- NOTE | 2019-09-11 21:57 | CT ---
EXAMINATION TYPE: CT abdomen pelvis w con DATE OF EXAM: 09/11/2019 COMPARISON: AP chest x-ray HISTORY: Chest pain HISTORY: Left lower quadrant pain. CT DLP: 635.3 mGycm Automated exposure control for dose reduction was used. TECHNIQUE: Helical acquisition of images from the lung bases through the pelvis have been completed. CONTRAST: Performed without Oral Contrast and with IV Contrast, patient injected with 100 mL of Isovue 300. FINDINGS: LUNG BASES: No significant abnormality is appreciated. AORTA: No significant abnormality is appreciated. LIVER/GB: No significant abnormality is appreciated. PANCREAS: No significant abnormality is seen. SPLEEN: No significant abnormality is seen. ADRENALS: No significant abnormality is seen. KIDNEYS: No significant abnormality is seen. REPRODUCTIVE ORGANS: No significant abnormality is seen BOWEL: Suspect there is a sizable duodenal diverticulum at the level of the head of the pancreas is a ir-fluid level. There is nonspecific colonic wall thickening present within the pelvis. There is a la rge amount of retained fecal debris throughout the distribution of the colon. FREE AIR: No Free Air visible. ASCITES: None visible. PELVIC ADENOPATHY: None visualized. RETROPERITONEAL ADENOPATHY: No Retroperitoneal Adenopathy visible. URINARY BLADDER: No significant abnormality is seen. OSSEOUS STRUCTURES: Degenerative disc disease and lumbar spine, there is an anterolisthesis grade 1 at the lumbosacral junction. IMPRESSION: CORRELATE FOR FECAL STASIS, POSSIBLE COLITIS
[2019-09-11 22:14] VITALS: BP 116/69; PULSE 74; RESP 16
== END 2019-09-11 23:16 | disposition home or self-care (01) ==
LOC: EC 19:20
DX: K52.9 Noninfective gastroenteritis and colitis, unspecified (principal); R55 Syncope and collapse; M06.9 Rheumatoid arthritis, unspecified; M19.90 Unspecified osteoarthritis, unspecified site; Z87.891 Personal history of nicotine dependence; Z88.5 Allergy status to narcotic agent; Z79.899 Other long term (current) drug therapy; Z96.60 Presence of unspecified orthopedic joint implant
CPT/HCPCS: 36415; 93005; 80053; 83690; 85025; 81003; 74177; 99284; 96374; 96375; 96376; 96361 ×2; J2405; J1170; Q9967

== ENCOUNTER → 2020-04-12 | Outpatient (CLI) | payer MEDICARE, BC ==
[2020-04-12 14:44] LABS: African American GFR (CKD) >90 (>60 ml/min/1.73 sqM); Blood Urea Nitrogen 13 mg/dL (7-17); Non-African American GFR(CKD) >90 (>60 ml/min/1.73 sqM)
--- NOTE | 2020-04-12 16:11 | CT ---
EXAMINATION TYPE: CT chest wo/w con DATE OF EXAM: 04/12/2020 COMPARISON: Prior CT 2016. HISTORY: Cough x1 year, SOB w/exertion. Former smoker. CT DLP: 669 mGycm. Automated Exposure Control for Dose Reduction was Utilized. TECHNIQUE: CT scan of the thorax is performed following without and with IV Contrast, patient inject ed with 100 mL of Isovue 300. FINDINGS: LUNGS: Mild underlying emphysematous change with mild linear scarring left lung base. No new nodules or masses. No pleural effusion or pneumothorax seen bilaterally. MEDIASTINUM: There are no greater than 1 cm hilar or mediastinal lymph nodes. No cardiomegaly or p ericardial effusion is seen. Coronary artery calcification is present which is noted marked of under lying coronary artery disease. Heterogeneous thyroid with scattered subcentimeter nodules redemonstra stephan. OTHER: No additional significant abnormality is seen. IMPRESSION: No suspicious acute pulmonary process.
== END | disposition home or self-care (01) ==
LOC: RADCTMAIN 13:51
PROVIDERS: ATTEND Family Medicine
DX: R05 Cough (principal)
CPT/HCPCS: 82565; 84520; 71270; 36415; Q9967

== ENCOUNTER → 2020-04-28 | Outpatient (CLI) | payer MEDICARE, BC ==
--- NOTE | 2020-04-30 21:21 | MR ---
EXAMINATION TYPE: MR lumbar spine wo con DATE OF EXAM: 04/28/2020 COMPARISON: MRI lumbar spine 05/28/2019. HISTORY: Chronic Lower back and sciatic pain into Left leg. TECHNIQUE: Multiplanar, multisequence images of the lumbar spine were acquired. Spinal alignment is normal. Vertebral body heights are preserved. Vertebral bone marrow is normal in signal. Multilevel degenerative disc disease, as described by level below. Multilevel disc desiccation. Lower thoracic cord is normal in signal. Conus terminates normally at L2. Cauda equina nerve roots are nor mal in course and caliber. Paraspinal soft tissues are unremarkable. Visualized upper sacroiliac joints appear intact. T12-L1: No posterior disc herniation, protrusion, or bulging. No canal stenosis. Foramina are patent bilaterally. L1-L2: No posterior disc herniation, protrusion, or bulging. No canal stenosis. Foramina are patent b ilaterally. L2-L3: Mild posterior disc bulge indents the ventral aspect of the thecal sac. No canal stenosis. For riley are mildly narrowed bilaterally. Facet arthropathy. L3-L4: Mild posterior disc bulge. No canal stenosis. Foramina are moderately narrowed bilaterally. Fa cet arthropathy. L4-L5: Moderate posterior disc bulge indents the ventral aspect of the thecal sac. Ligamentum flavum hypertrophy indents the posterior aspect of the thecal sac. Facet arthropathy . Mild canal stenosis. Foramina are moderately narrowed bilaterally. L5-S1: Grade 1 anterolisthesis of L5 on S1, with unroofing of the disc. Mild posterior disc bulge. Li gamentum flavum hypertrophy. Facet arthropathy. Mild canal stenosis. Foramina are severely narrowed b ilaterally. IMPRESSION: Multilevel degenerative disc disease and facet arthropathy with mild L4-L5 and L5-S1 canal stenosis. Redemonstrated grade one anterolisthesis of L5 on S1. There are varying degrees of neural foramina na rrowing, with severe narrowing at L5-S1 bilaterally.
== END | disposition home or self-care (01) ==
LOC: RADMRIMAIN 08:52
PROVIDERS: ATTEND Family Medicine
DX: M48.07 Spinal stenosis, lumbosacral region (principal); M51.16 Intervertebral disc disorders with radiculopathy, lumbar region; M43.17 Spondylolisthesis, lumbosacral region; M47.26 Other spondylosis with radiculopathy, lumbar region
CPT/HCPCS: 72148

== ENCOUNTER → 2020-05-22 | Outpatient (CLI) | payer MEDICARE, BC ==
[2020-05-22 13:40] LABS: HCT 35.6 % (34.0-46.0); HGB 11.5 gm/dL (11.4-16.0); MCH 30.9 pg (25.0-35.0); MCHC 32.3 g/dL (31.0-37.0); MCV 95.5 fL (80.0-100.0); Mean Platelet Volume 7.9; Platelet Count 255 k/uL (150-450); RBC 3.72 m/uL (3.80-5.40); RDW 14.7 % (11.5-15.5); WBC 7.9 k/uL (3.8-10.6)
[2020-05-22 13:59] LABS: African American GFR (CKD) >90 (>60 ml/min/1.73 sqM); Anion Gap 7 mmol/L; Blood Urea Nitrogen 11 mg/dL (7-17); Carbon Dioxide 24 mmol/L (22-30); Chloride 104 mmol/L (98-107); Non-African American GFR(CKD) >90 (>60 ml/min/1.73 sqM); Potassium 4.6 mmol/L (3.5-5.1); Sodium 135 mmol/L (137-145)
== END | disposition home or self-care (01) ==
LOC: LABPAT 11:50
PROVIDERS: ATTEND Internal Medicine Interventional Cardiology
DX: Z01.818 Encounter for other preprocedural examination (principal); R94.39 Abnormal result of other cardiovascular function study
CPT/HCPCS: 36415; 80051; 82565; 84520; 85027

== ENCOUNTER → 2021-02-01 | Outpatient (CLI) | payer MEDICARE, BC ==
[2021-02-02 03:55] LABS: Gliadin AB IgA, Deaminated NEGATIVE (NEGATIVE); Gliadin AB IgA, Unit <0.2 U/mL; Gliadin AB IgG, Deaminated NEGATIVE (NEGATIVE)
== END | disposition home or self-care (01) ==
LOC: LABWHC1 14:34
PROVIDERS: ATTEND Nurse Practitioner
DX: K58.9 Irritable bowel syndrome, unspecified (principal)
CPT/HCPCS: 36415; 83516